=== PATIENT | male | born 1950 | race Caucasian/White ===

== ENCOUNTER → 2020-10-25 | Outpatient (CLI) | payer MEDICARE, OTHER ==
[~2020-10-25] MED LIST: ASPIRIN EC81 MG PO; COLACE 100MG C100 MG PO; COZAAR25 MG PO; CRESTOR40 MG PO; DULCOLAX10 MG PR; ELIQUIS 2.5 MG2.5 MG PO; FLONASE 0.05% N16 GM; LASIX20 MG PO; LEXAPRO20 MG PO; LOPRESSOR 25 MG25 MG PO; LORTAB 7.5-3251 EACH PO; MAALOX PLUS 3030 ML PO; METHOCARBAMOL750 MG PO; NITROSTAT 0.40.4 MG SL; NORVASC 5 MG TAB5 MG PO; PANTOPRAZOLE SO40 MG PO; POTASSIUM CHLO10 ME1 PO; PROAIR HFA8.5 GM INH; VITAMIN B-12500 MCG PO; VITAMIN D-32000 UNI1 PO
[2020-10-26 11:15] LABS: TESTOSTERONE, SERUM 276 ng/dL (264-916)
== END ==
LOC: LAB 15:00
PROVIDERS: Internal Medicine Hematology & Oncology
DX: C61 Malignant neoplasm of prostate (principal)
CPT/HCPCS: 36415; 84153; 84403

== ENCOUNTER 2021-01-28 13:08 | Emergency (ER) | payer MEDICARE | END 2021-01-28 15:27 | disposition home or self-care (01) | LOC: ER1 13:08 | DX: J06.9 Acute upper respiratory infection, unspecified (principal); I11.0 Hypertensive heart disease with heart failure; I50.9 Heart failure, unspecified; Z85.46 Personal history of malignant neoplasm of prostate; Z20.822 Contact with and (suspected) exposure to COVID-19 | CPT/HCPCS: 0240U; 71045; 87081; 87880; 99283 ==

== ENCOUNTER → 2021-03-09 | Outpatient (CLI) | payer MEDICARE | LOC: EXRD 15:18 | DX: M54.5 Low back pain (principal); M47.816 Spondylosis without myelopathy or radiculopathy, lumbar region | CPT/HCPCS: 72110 ==

== ENCOUNTER → 2022-02-19 | Outpatient (CLI) | payer MEDICARE | LOC: EXRD 09:36 | DX: M54.50 Low back pain, unspecified (principal); G89.29 Other chronic pain; M47.816 Spondylosis without myelopathy or radiculopathy, lumbar region | CPT/HCPCS: 72110 ==

== ENCOUNTER 2022-05-15 17:06 | Emergency (ER) | payer MEDICARE ==
[~2022-05-15 17:06] MED LIST changes: -AMOX TR-K CLV1 EAC4 PO; -ZOFRAN ODT 4 MG4 MG SL
[2022-05-15 18:31] LABS: HEMOGLOBIN 14.6 gm/dl (14.0-17.5); RED BLOOD COUNT 5.08 M/UL (4.20-5.50); WHITE BLOOD COUNT 11.7 K/UL (4.5-11.0)
[2022-05-15] MEDS ORDERED: ZOFRAN ODT 4 MG4 MG SL (20:21)
[2022-05-15] MEDS ORDERED: AMOX TR-K CLV1 EAC4 PO (20:21)
== END 2022-05-15 21:20 | disposition home or self-care (01) ==
LOC: ER1 17:06
PROVIDERS: Emergency Medicine
DX: K63.0 Abscess of intestine (principal); I11.9 Hypertensive heart disease without heart failure; J45.909 Unspecified asthma, uncomplicated; Z95.1 Presence of aortocoronary bypass graft; Z79.82 Long term (current) use of aspirin
CPT/HCPCS: 80053; 81001; 83690; 85025; 96365; 99283; J2543

== ENCOUNTER → 2022-05-15 | Outpatient (CLI) | payer MEDICARE ==
[~2022-05-15] MED LIST changes: +AMOX TR-K CLV1 EAC4 PO; +ZOFRAN ODT 4 MG4 MG SL
== END ==
LOC: KOH-I 14:12
DX: R10.30 Lower abdominal pain, unspecified (principal); R79.89 Other specified abnormal findings of blood chemistry; C61 Malignant neoplasm of prostate
CPT/HCPCS: 74176